=== PATIENT | male | born 1935 | race Two or more races ===

== ENCOUNTER → 2016-08-21 | Outpatient (CLI) | payer MEDICARE ==
--- NOTE | 2016-08-21 12:31 | Diagnostic Imaging Report ---
Indications: Left-sided neck pain, lymphadenitis Technique: Spiral acquisitions obtained through the brain. Angled axial and coronal 5 x 5 mm slices were reconstructed. Total dose length product 1770 mGycm. CTDI vol(s) 8, 48, 21, 19 mGy Comparison: None Findings: There is a 5 mm nodule in the lower pole of the left thyroid lobe. No cervical mass or adenopathy demonstrated. Cervical nodes are prominent but not frankly enlarged bilaterally. No supraclavicular mass or adenopathy. The salivary glands are unremarkable. The parapharyngeal spaces are symmetric and clear. The nasopharynx, oropharynx, hypopharynx and larynx are unremarkable. The proximal esophagus is unremarkable. The vascular structures are grossly patent. There are degenerative proliferative changes of the cervical spine. The anterior oral cavity is obscured by streak artifact from dental amalgam. The included sinuses are clear. The included upper mediastinum is unremarkable. There is a prominent but not frankly enlarged aortopulmonary window node. The ascending thoracic aorta is ectatic but not aneurysmal. The included lung apices demonstrate some posterior dependent atelectatic changes, otherwise unremarkable. Impression: No acute process. No findings to suggest etiology of stated clinical history of left neck pain. Degenerative spondylosis changes are incidentally noted The CT scanner at [facility] is accredited by the [employer] and the scans are performed using protocols designed to limit radiation exposure to as low as reasonably achievable to attain images of sufficient resolution adequate for diagnostic evaluation.
--- NOTE | 2016-08-21 12:43 | Diagnostic Imaging Report ---
Clinical Indication: Abdominal pain, abnormal liver function tests and PSA Technique: Patient given oral contrast. IV administration nonionic contrast. Venous phase spiral acquisition obtained through the abdomen and pelvis. Multiplanar reconstructions were generated. Total dose length product 1770 mGycm. CTDIvol(s) 8, 48, 21, 19 mGy Comparison: None Findings: There is marked dilatation of the extrahepatic and intrahepatic biliary ducts. Common bile ducts measures 9 mm in diameter. There is a 9 mm calculus in the downstream common bile duct at the ampulla. The gallbladder is absent, presumably postsurgically. There appears to be low insertion of the right hepatic duct or an accessory right hepatic duct. No focal liver lesions are demonstrated. The pancreas, spleen, adrenals are unremarkable. The kidneys demonstrate bilateral cysts, as well as bilateral subcentimeter low-attenuation lesions which are too small to characterize. No retroperitoneal or mesenteric mass or adenopathy. No pelvic mass or adenopathy. The prostate is diffusely enlarged and heterogeneously hypoattenuating, measuring 5.8 cm transverse, 4.8 cm AP, and 5.6 cm craniocaudad is no evidence of diverticulosis or diverticulitis. The appendix is not definitely demonstrated, but there are no findings to suggest acute appendicitis. No small bowel distention or small bowel wall thickening. No free or loculated intraperitoneal air or fluid. Distal esophagus, stomach, duodenum are unremarkable. Dependent atelectatic changes are seen at the lung bases posteriorly. The heart is enlarged. Bones demonstrate degenerative spondylosis changes. Impression: Positive for downstream 9 mm common bile duct stone at the level of the ampulla. This results in extrahepatic and intrahepatic biliary ductal dilatation Variant biliary ductal anatomy with a low insertion of the right hepatic duct or an accessory right hepatic duct Surgically absent gallbladder Prostatomegaly Bilateral renal cysts. Bilateral subcentimeter low-attenuation renal lesions which are too small to characterize, most likely benign simple cysts. No further followup necessary Other findings as noted, including dependent pulmonary atelectatic changes, degenerative spondylosis The CT scanner at [facility] is accredited by the [employer] and the scans are performed using protocols designed to limit radiation exposure to as low as reasonably achievable to attain images of sufficient resolution adequate for diagnostic evaluation.
== END | disposition home or self-care (01) ==
LOC: CAT 08:31
DX: M54.2 Cervicalgia (principal); M47.892 Other spondylosis, cervical region; E04.1 Nontoxic single thyroid nodule; Z90.49 Acquired absence of other specified parts of digestive tract; K80.50 Calculus of bile duct without cholangitis or cholecystitis without obstruction; N40.0 Benign prostatic hyperplasia without lower urinary tract symptoms; N28.1 Cyst of kidney, acquired; J98.11 Atelectasis; I51.7 Cardiomegaly
CPT/HCPCS: 70491; 74177; Q9967

== ENCOUNTER → 2016-10-04 | Day surgery (SDC) | payer MEDICARE ==
[2016-10-04] VITALS (8 sets, daily range): BP systolic 123–154; BP diastolic 53–83
[~2016-10-04] VITALS: Ht 180.3 cm; Wt 86.2 kg
[~2016-10-04] MED LIST: Indomethacin 50mg Supp ONE; Iothalamate Meglumine 60% 30ML INJ ONE; LORazepam 0.5mg tab ONE; LORazepam Inj 2mg/ml 1ml IV PRN; LR 1000ml ONE; NAMENDA XR28 MG PO; Propofol 10mg/ml 20ml IV ONE
--- NOTE | 2016-10-04 09:10 | Short Stay Surgery H&P ---
History of Present Illness History of Present Illness Chief Complaint cbd stone HPI Alvin Navarro is a 81 year old male who was admitted on for Abdominal Pain Patient History Allergies: Coded Allergies: No Known Allergies (Unverified , 10/03/16) PAST MEDICAL HISTORY: (1) juandice (2) Dementia Past Surgeries: Social History: Medication History Scheduled Memantine Hcl (Namenda Xr), 28 MG PO DA, (Reported) Review of Systems Cardiovascular: Reports: no symptoms Respiratory: Reports: no symptoms Skeletal: Reports: no symptoms Gastrointestinal: Reports: jaundice Genitourinary: Reports: no symptoms Neurologic: Reports: no symptoms Endocrine: Reports: no symptoms Hematologic: Reports: no symptoms Physical Exam Vital Signs Last Vital Signs Date Time Temp Pulse Resp B/P Pulse Ox O2 Delivery O2 Flow Rate FiO2 10/04/16 08:35 98.2 66 20 154/58 99 Room Air Skin: normal HENT: normal Heart: normal Lungs: normal Abdomen: normal Extremities: normal Plan Plan of Care ercp Final Diagnosis: Attestation Are the patient's medical conditions optimized for surgery? Attestation Response: yes BALA MART Oct 04, 2016 09:10
--- NOTE | 2016-10-04 09:10 | Pre-Procedure Note/Attestation ---
Pre-Procedure Note/Attestation Complete Prior to Procedure Planned Procedure: not applicable Procedure Narrative: ercp Indications for Procedure Pre-Operative Diagnosis: cbd stone Attestation I attest that I discussed the nature of the procedure; its benefits; risks and complications; and alternatives (and the risks and benefits of such alternatives ), prior to the procedure, with the patient (or the patient's legal union representative). I attest that, if there was a reasonable possibility of needing a blood transfusion, the patient (or the patient's legal union representative) was given the [facility] standardized written summary, pursuant to the [employer] [place] Blood Safety Act ([place] Health and Safety Code # 1645, as amended). I attest that I re-evaluated the patient just prior to the surgery and that there has been no change in the patient's H&P, except as documented below: BALA MART Oct 04, 2016 09:10
--- NOTE | 2016-10-04 09:45 | Endoscopy Procedure Note ---
Endoscopy Procedure Note Indication for Procedure: choledocholithiasis Procedures Performed: ERCP Operative Findings/Diagnosis: same Specimen: none Pt Tolerated Procedure Well: Yes Estimated Blood Loss: none Anesthesiologist: pj Anesthesia: MAC Implant(s) used?: No 50 yrs or older w/o bx or poly: Not Applicable 10yrs. F/U not recommended: Not Applicable BALA MART Oct 04, 2016 09:45
--- NOTE | 2016-10-04 09:52 | Anethesia Preoperative Eval ---
Anesthesia Pre-op PMH/ROS General Date of Evaluation: Oct 04, 2016 Time of Evaluation: 09:00 ASA Score: ASA 3 Mallampati Score Class I : Soft palate, uvula, fauces, pillars visible Class II: Soft palate, uvula, fauces visible Class III: Soft palate, base of uvula visible Class IV: Only hard plate visible Mallampati Classification: Class I Allergies: Coded Allergies: No Known Allergies (Unverified , 10/03/16) Past Medical History Cardiovascular: Reports: HTN Gastrointestinal/Genitourinary: Reports: GERD Neurologic/Psychiatric: Reports: dementia Anesthesia Pre-op Phys. Exam Physician Exam Last Vital Signs Date Time Temp Pulse Resp B/P Pulse Ox O2 Delivery O2 Flow Rate FiO2 10/04/16 08:35 98.2 66 20 154/58 99 Room Air Alcides Faust MD Oct 04, 2016 09:52
--- NOTE | 2016-10-04 09:53 | Immediate Post-Op Evaluation ---
Immediate Post-Op Evalulation Immediate Post-Op Evalulation Procedure: ercp Date of Evaluation: Oct 04, 2016 Time of Evaluation: 09:52 Nausea: No Vomiting: No Hydration Status: adequate Alcides Faust MD Oct 04, 2016 09:53
--- NOTE | 2016-10-04 10:52 | 48 Hour Post Anesthesia Eval ---
Post Anesthesia Evaluation Procedure: ercp Date of Evaluation: Oct 04, 2016 Time of Evaluation: 10:52 Nausea: No Vomiting: No Follow-up care needed: ready to discharge Alcides Faust MD Oct 04, 2016 10:52
--- NOTE | 2016-10-04 17:28 | Procedure Note ---
DATE OF PROCEDURE: 10/04/2016 SURGEON: Wong Simon M.D. PROCEDURE: Endoscopic retrograde cholangiopancreatography with sphincterotomy and stone removal. ANESTHESIOLOGIST: INSTRUMENT: Olympus adult flexible ERCP scope. INDICATION: Choledocholithiasis. REASON FOR PROCEDURE: The procedure, risks, benefits, and possible consequences, including hemorrhage, aspiration, perforation and infection, and alternative treatments, were explained to the patient/legal guardian by Dr. Wong Simon and the patient/legal guardian understood and accepted these risks. DESCRIPTION OF PROCEDURE: After informed consent was obtained and the patient was adequately sedated, ERCP scope was advanced from mouth into the second portion of the duodenum. Then using a sphincterotome, common bile duct was selectively cannulated. The ampulla was very prominent. Initial cholangiogram showed dilated common bile duct to about 12 mm with a centimeter of stone floating in the distal common bile duct. Using a sphincterotomy technique, taking 95% sphincterotomy was performed and a balloon was used to sweep the duct multiple times and to remove the 1 cm black color stone without any complication. Post stone removal showed no further filling defect in the common bile duct. The flow of contrast from common bile duct to the duodenum was excellent and no stent was placed at this time. The patient tolerated the procedure very well without any complication. SUMMARY OF FINDINGS: Choledocholithiasis status post endoscopic retrograde cholangiopancreatography, sphincterotomy, and stone removal without any complication. RECOMMENDATIONS: The patient to go to the recovery for waking up. If there is no pain, we will start diet and advance as tolerated. The patient to follow up with Dr. Hooper for further follow up. I want to thank Dr. Aleida Hooper for this kind referral. Wong Simon M.D. DR: ANITA JOB#: [id number] CC: Aleida Hooper M.D.; Fax#: [phone] Britt M.D. ; Fax#: [phone]
--- NOTE | 2016-10-05 09:13 | Diagnostic Imaging Report ---
Indication: Abdominal pain, abnormal liver function tests,, bile duct calculus on prior CT Technique: Intraoperative images Comparison: Reference made to CT scan 08/21/2016 Findings: Interstitial images during ERCP by Dr. Simon demonstrate dilated extrahepatic bile ducts. A filling defect within the common hepatic duct likely represents the previously reported calculus which has been dislodged from its position at the level of the ampulla. Subsequent images demonstrate deployment of balloon extraction catheter. Impression: Intraoperative imaging, as described
== END | disposition home or self-care (01) ==
LOC: GAS 07:26
DX: K80.50 Calculus of bile duct without cholangitis or cholecystitis without obstruction (principal); I10 Essential (primary) hypertension; K21.9 Gastro-esophageal reflux disease without esophagitis; F03.90 Unspecified dementia, unspecified severity, without behavioral disturbance, psychotic disturbance, mood disturbance, and anxiety
CPT/HCPCS: 43262; 43264; 74328; 76000; J2704; J7120; Q9961; 94003; 94150